=== PATIENT | male | born 1970 | race Caucasian/White ===

== ENCOUNTER 2018-07-13 22:56 | Emergency (ER) | payer MEDICARE, OTHER ==
[~2018-07-13] VITALS: Ht 188 cm; Wt 81.8 kg
[2018-07-13 23:05] VITALS: Ht 188 cm; Wt 81.8 kg
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
[2018-07-14] MEDS ORDERED: DIVA500T15 PO (03:28)
[2018-07-14] MEDS ORDERED: CLOZ200T PO (03:28)
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
[2018-07-14] MEDS ORDERED: OLANZAPINE 5 MG TAB PO SCH ×2 (05:00→09:00)
[2018-07-14] MEDS ORDERED: LORAZEPAM 2 MG INJ IM ONE (05:30)
[2018-07-14] MEDS ORDERED: DIPHENHYDRAMINE 50 MG INJ IM ONE (05:30)
[2018-07-14 16:30] VITALS: BP 123/86; PULSE 81; RESP 18
== END 2018-07-14 21:42 ==
LOC: E/R 22:56
DX: F23 Brief psychotic disorder (principal); F17.210 Nicotine dependence, cigarettes, uncomplicated; D64.9 Anemia, unspecified; F79 Unspecified intellectual disabilities; R40.2142 Coma scale, eyes open, spontaneous, at arrival to emergency department; R40.2252 Coma scale, best verbal response, oriented, at arrival to emergency department; R40.2362 Coma scale, best motor response, obeys commands, at arrival to emergency department; Z91.14 Patient's other noncompliance with medication regimen
CPT/HCPCS: 80053; 80307; 81003; 85025; 96372; 99285; J1200; J2060

== ENCOUNTER 2018-09-06 03:48 | Emergency (ER) | payer MEDICARE, OTHER ==
[~2018-09-06] VITALS: Wt 82.3 kg
[~2018-09-06 03:48] MED LIST: CLOZ200T PO; DIVA500T15 PO
[2018-09-06 06:40] VITALS: BP 119/58; PULSE 70; RESP 12
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
== END 2018-09-06 06:40 | disposition home or self-care (01) ==
LOC: E/R 03:48
DX: F99 Mental disorder, not otherwise specified (principal); F17.210 Nicotine dependence, cigarettes, uncomplicated
CPT/HCPCS: 99282